=== PATIENT | female | born 1985 | race American Indian/Alaskan Native ===

== ENCOUNTER 2018-04-01 15:32 | Inpatient (IN) | payer BC, MEDICAID ==
[2018-04-01 16:31] LABS: Bacteria,Urine 2+ /HPF (Negative); Bilirubin,Urine NEG (Negative); Blood,Urine NEG (Negative); Color,Urine Amber (Yellow); Hyaline Casts,Urine 2 /LPF; Mucus,Urine 3+ /HPF
[2018-04-01 16:40] LABS: Hematocrit 31.8 % (30.3-42.9); Hemoglobin 10.1 gm/dl (10.1-14.3); Mean Corpuscular HGB Conc 32 % (30-34); Platelet Count 245 K/mm3 (140-440); Red Blood Count 4.95 M/mm3 (3.65-5.03); Red Cell Distribution Width 15.3 % (13.2-15.2)
[2018-04-01 16:46] LABS: Mean Corpuscular Volume 64 fl (79-97)
[2018-04-01 16:56] LABS: Alanine Aminotransferase 7 units/L (7-56); Uric Acid 5.2 mg/dL (3.5-7.6)
[2018-04-01] MEDS ORDERED: LACTATED RINGERS 500 ML IV ONE (17:01)
[2018-04-01] MEDS ORDERED: BRETHINE IVP PRN (17:32)
[2018-04-01] MEDS ORDERED: BRETHINE SUB-Q PRN (17:32)
[2018-04-01] MEDS ORDERED: MINERAL OIL PO PRN (17:32)
[2018-04-01] MEDS ORDERED: XYLOCAINE 2% INFILTRATI ONE (17:32)
--- NOTE | 2018-04-01 17:58 | History and Physical Report ---
History of Present Illness Date of examination: 04/01/18 Date of admission: 04/01/18 Chief complaint: SIUP at 36 weeks with HTN. History of present illness: Patient is a 33 year old , LMP 07/23/17, EDC 04/29/18 at 36 weeks gestation who was sent from the office for elevated BP. She complained of having headaches and spots of lights in her eyes yesterday. She denies any RUQ pain. She reports good movement. She has chronic HTN and has been on labetolol 200 mg BID. Her BP was 143/93 in the office. In triage, BP has been in the 120's/70's. tracing is CAT1. Past History Past Medical History: hypertension, other (anemia, obesity.) Family/Genetic History: none Social history: smoking - Obstetrical History Expected Date of Delivery: 04/29/18 Actual Gestation: 36 Week(s) 0 Day(s) : 5 Para: 2 Induced : 2 Number of Living Children: 2 #1 Gender: Female year: 2,[birth year] Birthweight: 2.268 kg Method of Delivery: (For distress.) Gestational age at delivery: 37 Complications: other (pre-eclampsia) #2 Infant Gender: Female year: 2,[birth year] Birthweight: 2.693 kg Method of Delivery: Gestational age at delivery: 37 Complications: other (pre-eclampsia) Medications and Allergies Allergies Allergy/AdvReac Type Severity Reaction Status Date / Time No Known Allergies Allergy Verified 02/11/18 16:15 Active Meds: Active Medications Acetaminophen (Tylenol) 650 mg PO Q6H PRN PRN Reason: Pain, Mild (1-3) Ephedrine Sulfate (Ephedrine Sulfate) 10 mg IV Q2M PRN PRN Reason: Hypotension Lactated Ringer's (Lactated Ringers) 1,000 mls @ 125 mls/hr IV DIRECT JACOB Oxytocin/Sodium Chloride (Pitocin/Ns 20 Unit/1000ml Drip) 20 units in 1,000 mls @ 125 mls/hr IV DIRECT JACOB Oxytocin/Sodium Chloride (Pitocin/Ns 30 Unit/500ml) 30 units in 500 mls @ 1 mls/hr IV TITR JACOB; Protocol Mineral Oil (Mineral Oil) 30 ml PO QHS PRN PRN Reason: Constipation Ondansetron HCl (Zofran) 4 mg IV Q8H PRN PRN Reason: Nausea And Vomiting Terbutaline Sulfate (Brethine) 0.25 mg SUB-Q ONCE PRN PRN Reason: Hyperstimulation/Hypertonicity Terbutaline Sulfate (Brethine) 0.25 mg IVP ONCE PRN PRN Reason: Hyperstimulation/Hypertonicity - Vital Signs Vital signs: Vital Signs Pulse BP 77 128/77 04/01/18 15:59 04/01/18 15:59 Temp Pulse Resp BP Pulse Ox 98.7 F 76 20 128/72 04/01/18 16:04 04/01/18 17:44 04/01/18 16:04 04/01/18 17:44 - Physical Exam Cardiovascular: Normal S1, Normal S2 Lungs: Positive: Clear to auscultation Vulva: both: normal Deep Tendon Reflex Grade: Normal +2 - Obstetrical FHR: category 1 Uterine Contraction Monitor Mode: External Cervical Dilatation: 0 Cervical Effacement Percentage: 0 station: -3 Uterine Contraction Pattern: Absent Results Result Diagrams: 04/01/18 16:12 04/01/18 16:12 Abnormal lab results 04/01/18 04/01/18 04/01/18 Range/Units 15:50 16:12 16:12 MCV 64 L (79-97) fl MCH 20 L (28-32) pg RDW 15.3 H (13.2-15.2) % Creatinine 0.6 L (0.7-1.2) mg/dL Lactate Dehydrogenase 557 H (91-180) units/L Urine WBC (Auto) 11.0 H (0.0-6.0) /HPF U Epithel Cells (Auto) 25.0 H (0-13.0) /HPF All other labs normal. Assessment and Plan - Patient Problems (1) 36 weeks gestation of Current Visit: Yes Status: Acute (2) Chronic hypertension affecting Current Visit: Yes Status: Acute Plan to address problem: Admit to labor floor. Toxemia labs. Monitor BP. Labetolol for BP control. monitoring. Sonogram for BPP, NIKITA. If BP becomes unstable, patient becomes symptomatic, or labs abnormal, will deliver via repeat C/section. (3) Previous section Current Visit: Yes Status: Acute (4) Obesity Current Visit: Yes Status: Acute Qualifiers: Obesity type: due to excess calories (5) Rh negative state in antepartum period Current Visit: Yes Status: Acute Plan to address problem: For rhogam after delivery.
[2018-04-01] MEDS ORDERED: PITOCin/NS 20 UNIT/1000ML DRIP 20 UNITS/1,000 ML BAG IV SCH (18:00)
[2018-04-01] MEDS ORDERED: PITOCin/NS 30 UNIT/500ML 30 UNITS/500 ML BAG IV SCH (18:00)
[2018-04-01] MEDS: TYLENOL PO PRN (18:10)
[2018-04-01] MEDS: NORMODYNE PO SCH (19:00)
--- NOTE | 2018-04-01 21:39 | Ultrasound Report ---
FINAL REPORT PROCEDURE: US OB BPP WO NON-STRESS TECHNIQUE: Real-time transabdominal sonography of the uterus, placenta, amniotic fluid, adnexa, and fetus was performed with image documentation. Measurements were obtained to determine age/size. M-mode Doppler was used to document heartbeat. CPT 48936 HISTORY: HTN COMPARISON: No prior studies are available for comparison. FINDINGS: The biophysical profile: tone: 2. breathin. movements: 2. Amniotic fluid: 2. Total score: 8/8. heart rate 143 beats per minute. IMPRESSION: Normal biophysical profile.
--- NOTE | 2018-04-01 21:42 | Ultrasound Report ---
FINAL REPORT PROCEDURE: US OB FOLLOW UP TECHNIQUE: Real-time limited sonographic examination was performed for evaluation of size, pos ition, heartbeat, fluid volume for each fetus with image documentation (1 or more fetuses). CPT 7681 5 HISTORY: HTN COMPARISON: No prior studies are available for comparison. FINDINGS: FETUS IUP: Single living intrauterine . Position: Cephalic. Placental position: Anterior, without previa . Amniotic fluid volume: 14.6 centimeters Heart rate and rhythm: 138 BPM, Regular . anatomic survey: Not performed. MEASUREMENTS BPD: 8.4 centimeters correspond at 33 weeks and 6 days. HC: 30.6 centimeters correspond at 34 weeks and 1 day. AC: 29.1 centimeters correspond at 33 weeks and 1 day. FL: 6 centimeters correspond at 31 weeks and 3 days. Mean Gestational Age (composite criteria): 33 weeks and 1 day. Ratio biometry: Normal . Estimated Weight: 2042 grams. Interval growth: Appropriate . Estimated Due Date (earliest scan): 05/19/2018. IMPRESSION: 1. Single living intrauterine gestation at approximately 33 weeks and 1 day. 2. EDC by US 05/19/2018.
--- NOTE | 2018-04-01 21:45 | Ultrasound Report ---
FINAL REPORT PROCEDURE: US OB VELOCIMETRY UMBILCAL ART TECHNIQUE: Real-time limited sonographic examination was performed for evaluation of size, pos ition, heartbeat, fluid volume for each fetus with image documentation (1 or more fetuses). CPT 7681 5 HISTORY: HTN COMPARISON: No prior studies are available for comparison. FINDINGS: Heart rate is 130 beats per minute. The umbilical artery S/D ratio is 2.76. Waveforms are normal. Resistive index is 0.63. IMPRESSION: The umbilical artery S/D ratio is 2.76.
[2018-04-02] MEDS: TYLENOL PO PRN ×2 (07:15→20:32)
[2018-04-02 10:01] LABS: Hematocrit 29.4 % (30.3-42.9); Hemoglobin 9.4 gm/dl (10.1-14.3); Mean Corpuscular HGB Conc 32 % (30-34); Platelet Count 252 K/mm3 (140-440); Red Cell Distribution Width 15.4 % (13.2-15.2)
[2018-04-02 10:04] LABS: Mean Corpuscular Volume 64 fl (79-97)
[2018-04-02 10:19] LABS: Alanine Aminotransferase 11 units/L (7-56)
[2018-04-02] MEDS: NORMODYNE PO SCH ×2 (10:29→22:15)
[2018-04-02] MEDS: ZOFRAN IV PRN (11:20)
[2018-04-02] MEDS: LACTATED RINGERS 1,000 ML IV SCH (17:49)
--- NOTE | 2018-04-02 18:39 | Progress Note ---
Assessment and Plan - Patient Problems (1) 36 weeks gestation of Current Visit: Yes Status: Acute (2) Chronic hypertension affecting Current Visit: Yes Status: Acute Plan to address problem: Continue 24hr urine [facility] consult for timing of delivery Continue Labetolol (3) Previous section Current Visit: Yes Status: Acute Subjective - Subjective Principal diagnosis: chronic hypertension Interval history: Good movement, no loss of fluid, no vaginal bleeding Patient reports: other (persistent headache) Objective - Vital Signs Vital Signs: Vital Signs - 12hr 04/02/18 04/02/18 04/02/18 07:08 07:30 08:09 Temperature Pulse Rate 64 72 71 Respiratory Rate Blood Pressure 141/80 138/89 143/85 Blood Pressure [Left] O2 Sat by Pulse Oximetry 04/02/18 04/02/18 04/02/18 08:29 09:08 09:13 Temperature 98.6 F Pulse Rate 71 76 74 Respiratory 18 Rate Blood Pressure 137/79 117/58 Blood Pressure 137/79 [Left] O2 Sat by Pulse 98 Oximetry 04/02/18 04/02/18 04/02/18 10:09 10:29 10:30 Temperature Pulse Rate 69 69 69 Respiratory Rate Blood Pressure 155/79 135/78 135/78 Blood Pressure [Left] O2 Sat by Pulse Oximetry 04/02/18 04/02/18 04/02/18 11:10 12:09 12:15 Temperature 97.9 F Pulse Rate 65 71 71 Respiratory 18 Rate Blood Pressure 134/76 133/73 Blood Pressure 133/73 [Left] O2 Sat by Pulse Oximetry 04/02/18 04/02/18 04/02/18 13:09 14:20 15:09 Temperature Pulse Rate 73 67 70 Respiratory Rate Blood Pressure 132/71 135/79 133/62 Blood Pressure [Left] O2 Sat by Pulse Oximetry 04/02/18 04/02/18 04/02/18 16:10 16:12 17:09 Temperature 98.0 F Pulse Rate 73 73 77 Respiratory 18 Rate Blood Pressure 135/69 125/81 Blood Pressure 135/69 [Left] O2 Sat by Pulse Oximetry 04/02/18 18:09 Temperature Pulse Rate 71 Respiratory Rate Blood Pressure 125/80 Blood Pressure [Left] O2 Sat by Pulse Oximetry - Labs Labs: Abnormal Labs 04/01/18 04/01/18 04/01/18 15:50 16:12 16:12 Hgb Hct MCV 64 L MCH 20 L RDW 15.3 H Creatinine 0.6 L Lactate Dehydrogenase 557 H Urine WBC (Auto) 11.0 H U Epithel Cells (Auto) 25.0 H 04/02/18 04/02/18 09:44 09:44 Hgb 9.4 L Hct 29.4 L MCV 64 L MCH 20 L RDW 15.4 H Creatinine 0.5 L Lactate Dehydrogenase Urine WBC (Auto) U Epithel Cells (Auto) Laboratory Results - last 24 hr 04/02/18 04/02/18 09:44 09:44 WBC 6.3 RBC 4.60 Hgb 9.4 L Hct 29.4 L MCV 64 L MCH 20 L MCHC 32 RDW 15.4 H Plt Count 252 Creatinine 0.5 L Estimated GFR > 60 Uric Acid 5.0 AST 22 ALT 11 Lactate Dehydrogenase 134
--- NOTE | 2018-04-02 21:47 | Event Note ---
Spoke with Dr. Mae for 36 week patient concerning for CHTN superimposed preeclampsia undergoing 24hr urine. Due to neurologic symptoms recommendation to deliver after course of steroids made CHTN S/I preeclampsia w severe features. Plan 1. Dexamethasone 6mg IV Q12hrs x 4 doses 2. Plan to proceed to repeat c/s after steriods.
[2018-04-02] MEDS ORDERED: DECADRON IV SCH (22:00)
[2018-04-02] MEDS ORDERED: DECADRON IM SCH ×2 (22:04→22:07)
[2018-04-02] MEDS: DECADRON IM SCH (23:32)
[2018-04-03] MEDS: LACTATED RINGERS 1,000 ML IV SCH (01:11)
--- NOTE | 2018-04-03 09:13 | Progress Note ---
Assessment and Plan - Patient Problems (1) 36 weeks gestation of Current Visit: Yes Status: Acute (2) Chronic hypertension affecting Current Visit: Yes Status: Acute Plan to address problem: Toxemia labs were normal. Monitor BP. Continue labetolol for BP control. Continuous monitoring. Will deliver via repeat C/section after steroid completed tonight. If BP becomes unstable, patient becomes symptomatic, or labs abnormal, will deliver sooner. (3) Previous section Current Visit: Yes Status: Acute Plan to address problem: For repeat C/section after steroid completed. (4) Obesity Current Visit: Yes Status: Acute Qualifiers: Obesity type: due to excess calories (5) Rh negative state in antepartum period Current Visit: Yes Status: Acute Plan to address problem: For rhogam after delivery. Subjective - Subjective Date of service: 04/03/18 Principal diagnosis: SIuP at 36 weeks with chronic hypertension Interval history: Patient is a 33 year old , LMP 07/23/17, EDC 04/29/18 at 36 weeks and 2 days gestation who was admitted for elevated BP. She complained of having headaches and spots of lights in her eyes the day before. She denies any RUQ pain. She reports good movement. She has chronic HTN and has been co- managed with [facility]. She is on labetolol 200 mg BID. Her BP was 143/93 in the office. Since her admission, her BP has been stable. BPP was 8/8, normal NIKITA. [facility] consult was done and recommended delivery after steroid for FLM is completed. Dexamethasone 2 doses have been given. She is scheduled for the next 2 doses today (to be completed at 11 PM). Currently, she denies any headache, visual changes or RUQ pain. She reports good movement. tracing is CAT1. 24-hr protein was 252.5. Patient reports: other (persistent headache) Objective - Vital Signs Vital Signs: Vital Signs - 12hr 04/02/18 04/02/18 04/02/18 21:09 22:14 22:15 Temperature Pulse Rate 71 71 71 Respiratory Rate Blood Pressure 144/90 148/81 148/81 Blood Pressure [Left] 04/02/18 04/02/18 04/03/18 23:10 23:55 00:08 Temperature 98.4 F Pulse Rate 71 71 68 Respiratory 20 Rate Blood Pressure 132/80 123/77 115/66 Blood Pressure 123/77 [Left] 04/03/18 04/03/18 04/03/18 01:11 02:09 03:51 Temperature 98.3 F Pulse Rate 75 69 73 Respiratory 18 Rate Blood Pressure 130/76 131/61 Blood Pressure 137/70 [Left] 04/03/18 04/03/18 04/03/18 03:53 04:08 05:09 Temperature Pulse Rate 73 71 69 Respiratory Rate Blood Pressure 137/70 130/66 122/58 Blood Pressure [Left] 04/03/18 04/03/18 04/03/18 07:09 07:35 08:00 Temperature 97.9 F Pulse Rate 75 70 Respiratory 14 Rate Blood Pressure 126/69 138/75 Blood Pressure [Left] 04/03/18 08:09 Temperature Pulse Rate 75 Respiratory Rate Blood Pressure 128/72 Blood Pressure [Left] - Exam Cardiovascular: Normal S1, Normal S2 Lungs: Clear to auscultation Vulva: both: normal FHR: category 1 Uterine Contraction Monitor Mode: External Cervical Dilatation: 0 Cervical Effacement Percentage: 0 station: -3 Uterine Contraction Pattern: Absent Deep Tendon Reflex Grade: Normal +2 - Labs Labs: Abnormal Labs 04/01/18 04/01/18 04/01/18 15:50 16:12 16:12 Hgb Hct MCV 64 L MCH 20 L RDW 15.3 H Creatinine 0.6 L Lactate Dehydrogenase 557 H Urine WBC (Auto) 11.0 H U Epithel Cells (Auto) 25.0 H Ur Total Protein 24 Hr 04/02/18 04/02/18 04/02/18 09:44 09:44 23:30 Hgb 9.4 L Hct 29.4 L MCV 64 L MCH 20 L RDW 15.4 H Creatinine 0.5 L Lactate Dehydrogenase Urine WBC (Auto) U Epithel Cells (Auto) Ur Total Protein 24 Hr 256.50 H Laboratory Results - last 24 hr 04/02/18 04/02/18 04/02/18 09:44 09:44 23:30 WBC 6.3 RBC 4.60 Hgb 9.4 L Hct 29.4 L MCV 64 L MCH 20 L MCHC 32 RDW 15.4 H Plt Count 252 Creatinine 0.5 L Estimated GFR > 60 Uric Acid 5.0 AST 22 ALT 11 Lactate Dehydrogenase 134 Urine Total Volume 2850 Ur Total Protein 24 Hr 256.50 H Urine Total Protein 9 - Results US- obstetric: report reviewed
[2018-04-03] MEDS: NORMODYNE PO SCH ×2 (10:20→22:07)
[2018-04-03] MEDS: DECADRON IM SCH ×2 (11:00→23:04)
[2018-04-03] MEDS: ZOLOFT PO SCH (12:23)
[2018-04-03] MEDS: TYLENOL PO PRN (21:18)
[2018-04-04] MEDS: ZOFRAN IV PRN (08:33)
[2018-04-04] MEDS: ZOLOFT PO SCH (10:17)
[2018-04-04] MEDS: NORMODYNE PO SCH (10:17)
[2018-04-04] MEDS: LACTATED RINGERS 1,000 ML IV SCH ×2 (11:28→16:29)
[2018-04-04] MEDS: PEPCID IV SCH (11:28)
--- NOTE | 2018-04-04 12:13 | Progress Note ---
Assessment and Plan - Patient Problems (1) 36 weeks gestation of Current Visit: Yes Status: Acute Plan to address problem: Plan repeat csection once steroid course complete. NPO (2) Chronic hypertension affecting Current Visit: Yes Status: Acute Plan to address problem: Continue Labetolol (3) Previous section Current Visit: Yes Status: Acute Subjective - Subjective Principal diagnosis: SIuP at 36 weeks with chronic hypertension Interval history: Good movement, no loss of fluid, no vaginal bleeding Patient reports: other Objective - Vital Signs Vital Signs: Vital Signs - 12hr 04/04/18 04/04/18 04/04/18 04:00 04:07 05:07 Temperature 98.7 F Pulse Rate 75 77 Respiratory Rate Blood Pressure 141/75 135/74 04/04/18 04/04/18 04/04/18 06:07 07:07 08:12 Temperature 97.5 F L Pulse Rate 78 80 73 Respiratory 20 Rate Blood Pressure 136/73 142/77 123/60 04/04/18 10:17 Temperature Pulse Rate 78 Respiratory Rate Blood Pressure 132/70 - Labs Labs: Abnormal Labs 04/01/18 04/01/18 04/01/18 15:50 16:12 16:12 Hgb Hct MCV 64 L MCH 20 L RDW 15.3 H Creatinine 0.6 L Lactate Dehydrogenase 557 H Urine WBC (Auto) 11.0 H U Epithel Cells (Auto) 25.0 H Ur Total Protein 24 Hr 04/02/18 04/02/18 04/02/18 09:44 09:44 23:30 Hgb 9.4 L Hct 29.4 L MCV 64 L MCH 20 L RDW 15.4 H Creatinine 0.5 L Lactate Dehydrogenase Urine WBC (Auto) U Epithel Cells (Auto) Ur Total Protein 24 Hr 256.50 H
[2018-04-04] MEDS: DECADRON IM SCH (12:28)
[2018-04-04] MEDS ORDERED: REGLAN IV ONE (15:10)
[2018-04-04] MEDS ORDERED: BICITRA PO ONE (15:10)
--- NOTE | 2018-04-04 15:26 | Anesthesia Consultation ---
Anesthesia Consult and Med Hx Date of service: 04/04/18 - Airway Anesthetic Teeth Evaluation: Good ROM Head & Neck: Adequate Mental/Hyoid Distance: Adequate Mallampati Class: Class II Intubation Access Assessment: Probably Good - Pulmonary Exam CTA: Yes - Cardiac Exam Cardiac Exam: RRR - Pre-Operative Health Status ASA Pre-Surgery Classification: ASA2 Proposed Anesthetic Plan: Spinal - Pulmonary Hx Asthma: Yes (last attack last year) - Cardiovascular System Hx Hypertension: Yes - Central Nervous System Hx Seizures: No Hx Psychiatric Problems: Yes (aniexty depression) - Endocrine Hx Renal Disease: No Hx Hypothyroidism: No Hx Hyperthyroidism: No - Hematic Hx Anemia: Yes Hx Sickle Cell Disease: No - Other Systems Hx Alcohol Use: No Hx Obesity: Yes
[2018-04-04] MEDS ORDERED: PHENERGAN PR PRN (15:27)
[2018-04-04] MEDS ORDERED: DILAUDID IV PRN ×2 (15:27→19:01)
[2018-04-04] MEDS ORDERED: PHENERGAN PO PRN (15:27)
[2018-04-04] MEDS ORDERED: ZOFRAN IV PRN (15:27)
[2018-04-04] MEDS ORDERED: NARCAN 0.4 MG/1 ML IV PRN (15:27)
--- NOTE | 2018-04-04 15:27 | Anesthesia Day of Surgery ---
Anesthesia Day of Surgery - Day of Surgery Patient Examined: Yes Patient H&P Reviewed: Yes Patient is NPO: Yes Beta Blockers: No Cardiac Clearance: No Pulmonary Clearance: No Boby's Test: N/A
[2018-04-04] MEDS ORDERED: LACTATED RINGERS 1,000 ML IV SCH ×2 (16:00→20:00)
[2018-04-04] MEDS ORDERED: fentaNYL-BUPIV 2 MCG/ML-0.125% 200 MCG/100 ML BAG EPIDURAL SCH (16:00)
[2018-04-04] MEDS ORDERED: ANCEF/STERILE WATER 2 GM/20 ML 2 GM/20 ML SYRINGE IV NR (16:00)
[2018-04-04] MEDS ORDERED: SODIUM CHLORIDE FLUSH SYRINGE 10 ML IV NR (16:00)
[2018-04-04] MEDS ORDERED: PITOCin/NS 20 UNIT/1000ML DRIP 20 UNITS/1,000 ML BAG IV SCH ×2 (16:00→20:00)
[2018-04-04] MEDS ORDERED: ANCEF/STERILE WATER 2 GM/20 ML IV ONE (16:55)
[2018-04-04] MEDS ORDERED: APRESOLINE IV ONE (19:12)
[2018-04-04] MEDS ORDERED: MAGNESIUM SULFATE 4GM/100ML 4 GM/100 ML BAG IV ONE (19:12)
[2018-04-04] MEDS ORDERED: APRESOLINE IV PRN (19:12)
[2018-04-04] MEDS ORDERED: TUCKS PAD TP PRN (19:16)
--- NOTE | 2018-04-04 19:29 | Operative Report ---
Operative Report Operative Report: PREOP Diagnosis 1. 36 3/7 weeks gestation 2. Previous section 3. Chronic hypertension superimposed preeclampsia Postop Diagnosis 1. 39 3/7 weeks gestation 2. Previous section 3. Chronic hypertension superimposed preeclampsia Procedure: Repeat low-transverse section Findings 1. Viable male infant in the vertex presentation, weighing 4lb 8oz, 2043g APGARS 5 at 1 min, 5 at 5 min and 9 at 10 min 2. Dense uterine to abdominal wall adhesions 3. Omental adhesions Surgeon 1. Jennifer Posada MD Anesthesia: 1. Epidural I/O: EBL: 700ml Specimens removed: 1. Placenta to pathology Complications: none Disposition: Patient taken to recovery room in stable condition INDICATIONS: The patient is a 33yo at 36 3/7weeks that was managed for chronic hypertension with severe features. After speaking with Sammie Cook, P[facility] - Maternal medicine the decision was to proceed to delivery based on history with CHTN on Labetolol with severe features.. The patient was consented and the risks including but not limited to bleeding, infections, injury to surrounding organs, potential injury to mother/ were discussed. All questions were answered and informed consent signed. PROCEDURE: The patient was taken to the OR in stable condition. Adequate anesthesia was ac hieved with epidural anesthesia. A da silva catheter was placed. She wore SCDs for DVT prophylaxis. And received Ancef for infection prophylaxis. The patient was prepped and draped in the usual fashion and an additional time out was done. A Pfannestiel incision was made in the skin. The fascia was incised and the incision extended laterally. The superior and inferior aspect of the rectus muscle was dissected off of the fascia. Entry into the peritoneum was achieved. The incision was extended caudal and cranially. A dense uterine body to abdominal wall incision was noted fixing the uterus to the abdominal wall. A low transverse incision was made and extended laterally. membranes were ruptured. The head was brought to the hysterotomy and mouth bulb suctioned. The body was delivered. The cord was clamped x 2, cut and infant handed off to awaiting allied health teacher staff. The placenta was delivered intact and 30 units of IV Pitocin was added to LR fluids. The uterus was exteriorized and cleaned of all clots. The uterus was repaired with 0-Vicryl in a running, locked stitch and an imbricating layer of the same suture was used. Of note the omental adhesion was cauterized and ligated. Interceed was placed between the uterine and rectus muscle planes. The muscle was reapproximated with 0-Vicryl and fascia was closed with PDS II The subcutaneous layer was reapproximated with 2-0 Vicryl and skin closed with 4-0 Vicryl. The patient tolerated the procedure well. All counts were correct x 3. Urine was noted to be clear at close of case. I was present and scrubbed for the entire procedure. The patient was taken to the recovery room in stable condition.
[2018-04-04] MEDS: PERCOCET 5/325 PO PRN (20:53)
[2018-04-04] MEDS: MAGNESIUM SULFATE 40GM/1000ML 40 GM/1,000 ML BAG IV SCH (21:21)
[2018-04-05] MEDS ORDERED: DILAUDID IV PRN (00:04)
[2018-04-05] MEDS: PERCOCET 5/325 PO PRN ×3 (05:42→20:20)
[2018-04-05 05:47] LABS: Hematocrit 24.1 % (30.3-42.9); Hemoglobin 7.7 gm/dl (10.1-14.3)
[2018-04-05] MEDS: NORMODYNE PO SCH ×2 (10:28→22:19)
[2018-04-05] MEDS: PEPCID IV SCH (10:28)
[2018-04-05] MEDS: ZOLOFT PO SCH (10:28)
[2018-04-05] MEDS: FEOSOL PO SCH (10:28)
--- NOTE | 2018-04-05 16:12 | Progress Note ---
<BALWINDER FELICIANO - Last Filed: 04/05/18 16:09> Assessment and Plan A: /postop day 1 S/P repeat LTCS. Chronic HTN; superimposed preeclampsia. P: Anticipate transfer to /B later tonight if OK with MD. Subjective - Subjective Date of service: 04/05/18 Principal diagnosis: / day 1 S/P repeat LTCS Interval history: Doing well. /postop day 1 S/P repeat LTCS; chronic HTN with s uperimposed preeclampsia. Paitent denies headache, chest pain, cough, shortness of breath, nausea. Patient reports: pain well controlled, no flatus, no nauseated [place]: doing well, in NICU Objective - Vital Signs Latest vital signs: Vital Signs Temp Pulse Resp BP BP Pulse Ox 04/05/18 15:28 66 136/73 04/05/18 14:28 72 130/62 04/05/18 13:28 80 125/59 04/05/18 13:23 98.7 F 67 18 145/77 04/05/18 12:28 69 116/61 04/05/18 12:11 80 116/63 04/05/18 12:10 97.5 F L 80 18 116/63 04/05/18 11:28 68 123/64 04/05/18 10:28 67 145/77 04/05/18 06:56 75 111/55 04/05/18 06:26 66 120/62 04/05/18 05:56 62 123/63 04/05/18 04:56 69 120/59 04/05/18 04:26 72 119/56 04/05/18 03:56 72 98/56 04/05/18 03:26 69 116/55 04/05/18 02:56 71 114/61 04/05/18 02:27 80 124/65 04/05/18 01:56 75 106/51 04/05/18 01:26 70 106/51 04/05/18 00:26 76 115/57 04/05/18 00:15 97.9 F 04/04/18 23:56 72 126/62 04/04/18 23:26 79 127/58 04/04/18 22:56 77 117/57 04/04/18 22:26 73 112/56 04/04/18 21:56 77 121/75 04/04/18 21:25 81 124/71 04/04/18 20:00 158/86 04/04/18 19:45 63 21 180/95 99 04/04/18 19:30 63 21 185/96 04/04/18 19:26 14 04/04/18 19:20 65 194/103 04/04/18 19:15 65 22 194/103 04/04/18 19:00 62 22 186/87 04/04/18 18:55 63 15 160/94 04/04/18 18:52 65 12 158/82 04/04/18 18:50 97.7 F 62 12 174/101 100 Intake and Output 04/05/18 04/05/18 04/05/18 07:59 15:59 23:59 Intake Total 30 Output Total 400 1800 Balance -400 -1770 Intake: Oral 30 Output: Urine 400 1800 Void 400 1800 Other: Total, Intake Amount 30 Total, Output Amount 400 900 - Exam Abdomen: Present: normal appearance, soft, normal bowel sounds. Absent: distention, tenderness, guarding, rigidity Uterus: Present: normal, firm, fundal height below umbilicus. Absent: bogginess, tenderness Extremities: Present: normal, edema (bilateral pedal edema; mild hand edema bilaterally). Absent: tenderness Incision: Present: normal, dry, intact, dressed - Labs Labs: Abnormal lab results 04/05/18 04/05/18 04/05/18 Range/Units 05:24 05:24 12:23 Hgb 7.7 L (10.1-14.3) gm/dl Hct 24.1 L (30.3-42.9) % Magnesium 4.20 H 4.60 H (1.7-2.3) mg/dL <FREDDIE BROWNING - Last Filed: 04/08/18 08:55> Assessment and Plan - Patient Problems (1) 36 weeks gestation of Current Visit: Yes Status: Acute (2) Chronic hypertension affecting Current Visit: Yes Status: Acute (3) Previous section Current Visit: Yes Status: Acute (4) Anemia due to acute blood loss Current Visit: Yes Status: Acute Plan to address problem: Start iron supplementation. Objective - Vital Signs Latest vital signs: Vital Signs Temp Pulse Resp BP BP BP Pulse Ox 04/08/18 08:10 97.8 F 71 20 148/65 04/08/18 01:33 98.4 F 77 18 135/62 04/07/18 21:49 77 132/69 132/69 04/07/18 16:44 98.3 F 75 20 127/70 98 Intake and Output 04/07/18 04/08/18 04/08/18 23:59 07:59 15:59 Intake Total 240 360 320 Balance 240 360 320 Intake: Oral 240 320 Intake, Free Water 360 Other: Total, Intake Amount 240 320 # Voids Void 1 2 1 - Labs Labs: Abnormal lab results 04/08/18 Range/Units 04:11 Hgb 6.9 L (10.1-14.3) gm/dl Hct 21.6 L (30.3-42.9) %
[2018-04-05] MEDS: MAGNESIUM SULFATE 40GM/1000ML 40 GM/1,000 ML BAG IV SCH (17:02)
[2018-04-05] MEDS: LACTATED RINGERS 1,000 ML IV SCH (18:43)
[2018-04-06] MEDS: MYLICON PO PRN ×2 (03:39→11:22)
[2018-04-06] MEDS: PERCOCET 5/325 PO PRN ×5 (03:40→22:17)
[2018-04-06] MEDS: MILK OF MAGNESIA PO PRN (08:36)
--- NOTE | 2018-04-06 10:25 | Progress Note ---
Assessment and Plan A: /postop day 2 S/P repeat low transverse section. Anemia. Chronic hypertension with superimposed preeclampsia. Heart murmur. P: Repeat hemoglobin and hematocrit this morning. Ambulate in cardenas; drink warm liquids. Will advance diet to regular at lunch today if patient is able to pass gas this morning. Hospitalist consult re: heart murmur (patient states she was never told she had this previously). Subjective - Subjective Date of service: 04/06/18 Principal diagnosis: / day 2 S/P repeat LTCS Interval history: /postop day 2 S/P repeat LTCS. Doing well. Has anemia and iron supplementation has been ordered. Patient is voiding without difficulty. Ambulating well. No flatus yet. Tolerating liquid diet with no nausea or vomiting. Patient denies headache, dizziness, cough, shortness of breath, chest pain, abdominal pain, leg pain, or heavy vaginal bleeding. Will drink warm liquids this morning and ambulate to try to pass gas. Plan advancing diet to regular as soon as she is able to pass gas. Repeat H&H has been ordered for this morning. Patient's BP was low overnight; Labetalol was dose was decreased to 200 mg po BID. Patient reports: appetite normal, voiding normally, pain well controlled, ambulating normally, no dizzy ambulation, no flatus, no bowel movement, no nauseated : doing well, in NICU Objective - Vital Signs Latest vital signs: Vital Signs Temp Pulse Resp BP BP BP 04/06/18 08:31 18 04/06/18 08:00 98.6 F 71 18 138/73 04/06/18 04:40 18 04/06/18 03:40 20 04/06/18 03:00 110/70 04/06/18 00:40 100/50 04/05/18 23:30 98.2 F 82 20 90/35 04/05/18 22:19 88 140/77 04/05/18 21:20 20 04/05/18 20:40 98.2 F 68 20 140/85 04/05/18 20:06 97.6 F 74 16 141/77 04/05/18 20:04 74 141/77 04/05/18 18:28 74 125/69 04/05/18 17:28 70 147/82 04/05/18 16:28 68 152/83 04/05/18 15:28 66 136/73 04/05/18 14:28 72 130/62 04/05/18 13:28 80 125/59 04/05/18 13:23 98.7 F 67 18 145/77 04/05/18 12:28 69 116/61 04/05/18 12:11 80 116/63 04/05/18 12:10 97.5 F L 80 18 116/63 04/05/18 11:28 68 123/64 04/05/18 10:28 67 145/77 Intake and Output 04/05/18 04/06/18 04/06/18 23:59 07:59 15:59 Intake Total 973.083 500 Output Total 1500 Balance -526.917 500 Intake: IV 492.083 MAGNESIUM SULFATE 40GM/ 492.083 1000ML 40 gm In 1,000 ml @ 1 GM/HR 25 mls/hr IV DIRECT JACOB Rx#:[id number] Oral 480 200 Intake, Free Water 300 Blood Product 0 Rhogam Unit [id number] 0 Other 1 Rhogam Unit [id number] 1 Output: Urine 1500 Indwelling Catheter 700 Void 800 Other: Total, Intake Amount 240 200 Total, Output Amount 700 # Voids Void 1 - Exam Cardiovascular: Present: Regular rate, Normal S1, Normal S2 (murmur heard) Lungs: Present: Clear to auscultation Abdomen: Present: normal appearance, soft, normal bowel sounds. Absent: distention, tenderness, guarding, rigidity Uterus: Present: normal, firm, fundal height below umbilicus. Absent: bogginess, tenderness Extremities: Present: normal, edema (mild pedal edema bilaterally). Absent: tenderness Incision: Present: normal, dry, intact, dressed - Labs Labs: Abnormal lab results 04/05/18 04/05/18 04/06/18 Range/Units 12:23 18:52 01:11 Magnesium 4.60 H 4.70 H 3.20 H (1.7-2.3) mg/dL
[2018-04-06] MEDS: FEOSOL PO SCH (11:10)
[2018-04-06] MEDS: PEPCID PO SCH ×2 (11:10→22:07)
[2018-04-06] MEDS: NORMODYNE PO SCH ×2 (11:19→22:18)
[2018-04-06] MEDS: ZOLOFT PO SCH (11:22)
[2018-04-06 11:39] LABS: Hematocrit 23.9 % (30.3-42.9); Hemoglobin 7.6 gm/dl (10.1-14.3)
--- NOTE | 2018-04-06 12:50 | Consultation ---
History of Present Illness - Reason for Consult Consult date: 04/06/18 heart murmur - History of Present Illness This is a 33 y/o female s/p low-transverse section on 04/04/18 with live with h/o HTN and pre-eclampsia. Medicine service consulted for new onset murmur. Past History Past Medical History: hypertension, other (anemia, obesity.) Family/Genetic History: none Social history: smoking Family History: HTN Medications and Allergies Allergies Allergy/AdvReac Type Severity Reaction Status Date / Time No Known Allergies Allergy Verified 02/11/18 16:15 Home Medications Medication Instructions Recorded Confirmed Last Taken Type Ferrous Sulfate [Feosol 325 MG tab] 325 mg PO BID 30 Days #60 tablet 04/04/18 Unknown Rx oxyCODONE /ACETAMINOPHEN [Percocet 1 tab PO Q4HR PRN 14 Days #30 tab 04/04/18 Unknown Rx 5/325] Amlodipine Besylate [Norvasc] 10 mg PO QDAY #30 tablet 04/09/18 Unknown Rx Ferrous Sulfate [Iron] 325 mg PO BID #60 tablet 04/09/18 Unknown Rx Ibuprofen [Motrin] 800 mg PO Q8HR PRN #30 tablet 04/09/18 Unknown Rx oxyCODONE /ACETAMINOPHEN [Percocet 1 tab PO Q4HR #14 tab 04/09/18 Unknown Rx 5/325] Active Meds: Active Medications Acetaminophen (Tylenol) 650 mg PO Q6H PRN PRN Reason: Pain, Mild (1-3) Last Admin: 04/03/18 21:18 Dose: 650 mg Documented by: Diphtheria/Tetanus/Acell Pertussis (Boostrix) 0.5 ml IM .ONCE ONE Stop: 04/07/18 06:01 Ephedrine Sulfate (Ephedrine Sulfate) 10 mg IV Q2M PRN PRN Reason: Hypotension Famotidine (Pepcid) 20 mg PO BID [facility] Last Admin: 04/06/18 11:10 Dose: 20 mg Documented by: Ferrous Sulfate (Feosol) 325 mg PO QDAY [facility] Last Admin: 04/06/18 11:10 Dose: 325 mg Documented by: Hydralazine HCl (Apresoline) 5 mg IV Q30MIN PRN PRN Reason: Hypertension Last Admin: 04/04/18 20:03 Dose: 5 mg Documented by: Lactated Ringer's (Lactated Ringers) 1,000 mls @ 125 mls/hr IV DIRECT JACOB Last Admin: 04/05/18 18:43 Dose: 125 mls/hr Documented by: Oxytocin/Sodium Chloride (Pitocin/Ns 20 Unit/1000ml Drip) 20 units in 1,000 mls @ 125 mls/hr IV DIRECT JACOB Last Admin: 04/04/18 23:54 Dose: 125 mls/hr Documented by: Oxytocin/Sodium Chloride (Pitocin/Ns 20 Unit/1000ml Drip) 20 units in 1,000 mls @ 0 mls/hr IV TITR JACOB Fentanyl/Bupivacaine/Sodium Chlor (Fentanyl-Bupiv 2 Mcg/Ml-0.125%) 200 mcg in 100 mls @ 8 mls/hr EPIDURAL TITRATE JACOB; Protocol Lactated Ringer's (Lactated Ringers) 1,000 mls @ 125 mls/hr IV DIRECT JACOB Magnesium Sulfate (Magnesium Sulfate 40gm/1000ml) 40 gm in 1,000 mls @ 25 mls/hr IV DIRECT JACOB Last Admin: 04/05/18 17:02 Dose: 1 gm/hr, 25 mls/hr Documented by: Oxytocin/Sodium Chloride (Pitocin/Ns 20 Unit/1000ml Drip) 20 units in 1,000 mls @ 250 mls/hr IV DIRECT JACOB Labetalol HCl (Normodyne) 200 mg PO BID [facility] Last Admin: 04/06/18 11:19 Dose: Not Given Documented by: Magnesium Hydroxide (Milk Of Magnesia) 30 ml PO QHS PRN PRN Reason: Constip Unrelieved By Senna Last Admin: 04/06/18 08:36 Dose: 30 ml Documented by: Mineral Oil (Mineral Oil) 30 ml PO QHS PRN PRN Reason: Constipation Multi-Ingredient Ointment (Lansinoh) 1 applic TP PRN PRN PRN Reason: dryness/cracking Naloxone HCl (Narcan 0.4 Mg/1 Ml) 0.2 mg IV Q2MIN PRN PRN Reason: Res Rate </= 8 or 02 SAT < 92% Ondansetron HCl (Zofran) 4 mg IV Q8H PRN PRN Reason: Nausea And Vomiting Last Admin: 04/04/18 08:33 Dose: 4 mg Documented by: Ondansetron HCl (Zofran) 4 mg IV Q8H PRN PRN Reason: Nausea And Vomiting Oxycodone/Acetaminophen (Percocet 5/325) 1 tab PO Q4H PRN PRN Reason: Pain, Moderate (4-6) Last Admin: 04/06/18 08:31 Dose: 1 tab Documented by: Promethazine HCl (Phenergan) 25 mg PO Q6H PRN PRN Reason: Nausea And Vomiting Promethazine HCl (Phenergan) 25 mg CA Q6H PRN PRN Reason: Nausea And Vomiting Sertraline HCl (Zoloft) 25 mg PO QDAY JACOB Last Admin: 04/06/18 11:22 Dose: 25 mg Documented by: Simethicone (Mylicon) 80 mg PO Q6H PRN PRN Reason: Gas pain Last Admin: 04/06/18 11:22 Dose: 80 mg Documented by: Yvonne Andino/Glycerin (Tucks Pad) 1 each TP PRN PRN PRN Reason: Hemorrhoids/cleansing/soothing Review of Systems All systems: negative (mild pain at the surgical site) Exam - Physical Exam Narrative exam: General appearance: Present: no acute distress, well-nourished - EENT Eyes: PERRL, EOM intact ENT: hearing intact, clear oral mucosa Ears: bilateral: normal - Neck Neck: supple, normal ROM - Respiratory Respiratory effort: normal Respiratory: bilateral: CTA - Cardiovascular Rhythm: regular Heart Sounds: Present: S1 & S2. Absent: gallop, rub Extremities: pulses intact, No edema, normal color, Full ROM - Gastrointestinal General gastrointestinal: Present: normal bowel sounds - Integumentary Integumentary: clear, warm, dry - Musculoskeletal Musculoskeletal: 1, strength equal bilaterally - Neurologic Neurologic: moves all extremities - Psychiatric Psychiatric: memory intact, appropriate mood/affect, intact judgment & insight - Constitutional Vitals: Temp Pulse Resp BP Pulse Ox 98.6 F 76 18 125/76 99 04/06/18 08:00 04/06/18 11:19 04/06/18 08:31 04/06/18 11:19 04/04/18 19:45 Results - Labs CBC & Chem 7: 04/09/18 12:11 04/09/18 12:11 Labs: Abnormal lab results 01/26/19 01/27/19 01/27/19 Range/Units 18:52 01:11 11:18 Hgb 7.6 L (10.1-14.3) gm/dl Hct 23.9 L (30.3-42.9) % Magnesium 4.70 H 3.20 H (1.7-2.3) mg/dL Assessment and Plan New onset Murmur - get 12 lead EKG, serial trop, 2d echo - will get LE doppler, d-dimer , CXR
[2018-04-06] MEDS: LANSINOH TP PRN (13:04)
--- NOTE | 2018-04-06 14:41 | XRay Report ---
FINAL REPORT EXAM: XR CHEST 1V AP HISTORY: sob TECHNIQUE: Frontal chest radiograph. PRIORS: None. FINDINGS: Cardiac silhouette appears mildly prominent in size. No evidence of pulmonary edema. No focal consolidation. No pleural effusion. No pneumothorax. No acute osseous abnormality. IMPRESSION: Possible mild cardiomegaly. No acute cardiopulmonary process.
[2018-04-06 16:54] LABS: BUN/Creatinine Ratio 5; Blood Urea Nitrogen 3 mg/dL (7-17); Calcium 7.6 mg/dL (8.4-10.2); Hemolysis Index 4
[2018-04-06] MEDS ORDERED: NACL 0.9% IV SCH (17:00)
[2018-04-07] MEDS ORDERED: BOOSTRIX IM ONE (06:00)
[2018-04-07] MEDS: FEOSOL PO SCH (09:37)
[2018-04-07] MEDS: PERCOCET 5/325 PO PRN ×3 (09:37→20:36)
[2018-04-07] MEDS: PEPCID PO SCH ×2 (09:37→21:49)
[2018-04-07] MEDS: ZOLOFT PO SCH (09:38)
--- NOTE | 2018-04-07 10:02 | Cat Scan Report ---
CTA CHEST INDICATION: Shortness of breath. COMPARISON: None similar. FINDINGS: Chest CTA performed following intravenous administration of 100 cc of Omnipaque 350. Rotational MIP's also obtained. Mild cardiomegaly. Minimal bibasilar pleural fluid and right more than left lower lobe atelectasis posteriorly noted. Slight mosaic attenuation bilaterally. No pericardial effusion. No aortic aneurysm or dissection. No suspicious pulmonary arterial filling defects. Patent central airway. No size significant adenopathy with few small left axillary lymph nodes measure up to approximately 1 cm. Normal imaged thyroid. Right hemidiaphragm approximately 3 cm higher than the left. Nonspecific distal esophageal wall prominence/thickening, not excluded for gastroesophageal reflux and/or hiatal hernia, amongst others. No acute abnormality in the imaged upper abdomen. Mild degenerative spurring at few spinal levels. CONCLUSION: No CT evidence of pulmonary embolism with few other findings as cardiomegaly, minimal bilateral pleural fluid, mildly elevated right hemidiaphragm and right more than left basilar atelectasis noted, as described. Please correlate. Thank you for the opportunity to participate in this patient's care.
--- NOTE | 2018-04-07 12:07 | Progress Note ---
Assessment and Plan - Patient Problems (1) S/P repeat low transverse Current Visit: Yes Status: Acute Plan to address problem: POD 3 - stable Continue routine postop orders Ambulation encouraged, as tolerated Abdominal binder ordered prn Anticipate discharge in 24 hours pending clearance from Internal Medicine (2) Chronic hypertension affecting Current Visit: Yes Status: Acute Plan to address problem: Asymptomatic Completed magnesium sulfate therapy Continue Labetalol 200mg PO BID (3) Anemia in puerperium, baby delivered during current episode of care Current Visit: Yes Status: Acute Plan to address problem: Asymptomatic Continue iron therapy Repeat H&H on 04/08/18 (4) Rh negative state in antepartum period Current Visit: Yes Status: Acute Plan to address problem: RhoGam given PP Subjective - Subjective Date of service: 04/07/18 Principal diagnosis: POD #3; s/p Repeat LTCS Interval history: 33yo G 3 P 2 1 0 3 s/p repeat LTCS on 04/05/18 of a viable male on 04/04/18. Heart murmur noted yesterday and internal medicine consult ordered. Patient has been seen by internal medicine. LE doppler still pending. Patient reports: appetite normal, voiding normally, pain well controlled, fl atus, ambulating normally, other (denies headache, visual disturbances or RUQ pain), no dizzy ambulation, no bowel movement [place]: doing well, in NICU Objective - Vital Signs Latest vital signs: Vital Signs Temp Pulse Resp BP BP 04/07/18 07:49 98.2 F 74 18 136/82 04/07/18 04:05 98.2 F 81 18 128/66 04/07/18 00:00 98.2 F 79 18 126/73 04/06/18 22:18 124/67 04/06/18 22:00 98.0 F 86 18 124/67 04/06/18 17:17 18 04/06/18 17:16 98.2 F 85 18 119/55 Intake and Output 04/06/18 04/07/18 04/07/18 23:59 07:59 15:59 Intake Total 320 600 120 Balance 320 600 120 Intake: Oral 320 600 120 Other: Total, Intake Amount 320 360 120 # Voids Void 1 1 1 - Exam Cardiovascular: Present: Regular rate Lungs: Present: Clear to auscultation Abdomen: Present: normal appearance Vulva: both: normal Uterus: Present: normal, firm, fundal height below umbilicus Extremities: Present: normal Incision: Present: normal, dry, intact (steri strips in place) - Labs Labs: Abnormal lab results 04/06/18 04/06/18 Range/Units 15:46 15:46 D-Dimer 2395.37 H (0-234) ng/mlDDU Sodium 135 L (137-145) mmol/L BUN 3 L (7-17) mg/dL Creatinine 0.6 L (0.7-1.2) mg/dL Calcium 7.6 L (8.4-10.2) mg/dL
--- NOTE | 2018-04-07 14:56 | Progress Note ---
Assessment and Plan New onset Murmur - likely its a flow murmur due to anemia following - normal 12 lead EKG, negative serial trop, 2d echo showed normal valve with preserved EF - normal CXR and negative for PE, NEGATIVE VENOUS DOPPLER FOR DVT Anemia, s/p one onit of PRBc transfusion, cont to monitor H/h Subjective Date of service: 04/07/18 Principal diagnosis: POD #3; s/p Repeat LTCS Interval history: Patient seen and examined No acute event o/n tolerating diet, no chest pain/SOB Objective - Constitutional Vitals: Vital Signs - 12hr 04/07/18 04/07/18 04:05 07:49 Temperature 98.2 F 98.2 F Pulse Rate 81 74 Respiratory 18 18 Rate Blood Pressure 128/66 136/82 [Right] General appearance: Present: no acute distress, well-nourished - EENT Eyes: PERRL, EOM intact ENT: hearing intact, clear oral mucosa Ears: bilateral: normal - Neck Neck: supple, normal ROM - Respiratory Respiratory effort: normal Respiratory: bilateral: CTA - Cardiovascular Rhythm: regular Heart Sounds: Present: S1 & S2. Absent: gallop, rub Extremities: pulses intact, No edema, normal color, Full ROM - Gastrointestinal General gastrointestinal: Present: normal bowel sounds - Integumentary Integumentary: clear, warm, dry - Musculoskeletal Musculoskeletal: 1, strength equal bilaterally - Neurologic Neurologic: moves all extremities - Psychiatric Psychiatric: memory intact, appropriate mood/affect, intact judgment & insight - Labs CBC & Chem 7: 04/09/18 12:11 04/09/18 12:11 Labs: Abnormal lab results 04/06/18 04/06/18 Range/Units 15:46 15:46 D-Dimer 2395.37 H (0-234) ng/mlDDU Sodium 135 L (137-145) mmol/L BUN 3 L (7-17) mg/dL Creatinine 0.6 L (0.7-1.2) mg/dL Calcium 7.6 L (8.4-10.2) mg/dL
--- NOTE | 2018-04-07 20:09 | Vascular Lab Report ---
FINAL REPORT EXAM: VL VENOUS DUPLEX LE BILAT HISTORY: Possible DVT TECHNIQUE: Real-time color duplex sonography was performed of the deep venous systems of the bilater al lower extremities and images are submitted for interpretation. PRIORS: None. FINDINGS: Right: There is normal compressibility of the common and superficial femoral veins and the popliteal vein. Normal venous waveforms are demonstrated throughout. No echogenic thrombus is demonstrated. Left: There is normal compressibility of the common and superficial femoral veins and the popliteal v ein. Normal venous waveforms are demonstrated throughout. No echogenic thrombus is demonstrated. IMPRESSION: No evidence of DVT.
[2018-04-07] MEDS: NORMODYNE PO SCH (21:49)
[2018-04-08] MEDS: PERCOCET 5/325 PO PRN ×4 (04:04→21:06)
[2018-04-08] MEDS: MILK OF MAGNESIA PO PRN ×2 (04:09→21:14)
[2018-04-08 04:39] LABS: Hematocrit 21.6 % (30.3-42.9); Hemoglobin 6.9 gm/dl (10.1-14.3)
[2018-04-08] MEDS: LANSINOH TP PRN (08:52)
[2018-04-08] MEDS: FEOSOL PO SCH (09:56)
[2018-04-08] MEDS: PEPCID PO SCH ×2 (09:57→21:07)
[2018-04-08] MEDS: NORMODYNE PO SCH ×2 (09:57→21:07)
[2018-04-08] MEDS: ZOLOFT PO SCH (09:57)
--- NOTE | 2018-04-08 11:17 | Progress Note ---
Addendum entered and electronically signed by BRADLEY MCKEON CNM 04/08/18 11:32: Pt reports Swollen "knots under her arms" Bilateral lymphedema noted. L side has larger lymph node. Size of golf ball. Will also notify of this finding. Original Note: Assessment and Plan A: POD#4 s/p Repeat c/s in NICU; Pt pumping her breast to breastfeed CHTN w/ super imposed preeclampsia; s/p MgS04; Labetalol 200mg BID Severe Anemia (6.9/21.6); "slightly dizzy with ambulation, fatigue" Heart Murmur: Internal Med Evaluation (12L EKG, Echo, and Chest XR WNL); Elevated D-Dimer 2395.35 Previous SOB; resolved 3+ bilateral lower extremity edema P: Continue Routine PP/PO orders Abdomnal binder Compression Stockings Continued co-management with Internal Med Consult Dr. Posada: management of hypertension; possible transfusion Subjective - Subjective Date of service: 04/08/18 Principal diagnosis: POD #4; CHTN w/ super imposed preeclampsia s/p Repeat LTCS; Severe Anemia Interval history: See H&P and previous notes Patient reports: appetite normal, voiding normally, pain well controlled, flatus, ambulating normally [place]: in NICU Objective - Vital Signs Latest vital signs: Vital Signs Temp Pulse Resp BP BP BP Pulse Ox 04/08/18 08:10 97.8 F 71 20 148/65 04/08/18 01:33 98.4 F 77 18 135/62 04/07/18 21:49 77 132/69 132/69 04/07/18 16:44 98.3 F 75 20 127/70 98 Intake and Output 04/07/18 04/08/18 04/08/18 23:59 07:59 15:59 Intake Total 240 360 320 Balance 240 360 320 Intake: Oral 240 320 Intake, Free Water 360 Other: Total, Intake Amount 240 320 # Voids Void 1 2 1 - Exam Breasts: Present: normal, (Pumping) Cardiovascular: Present: Regular rate, Normal S1, Normal S2, Other (Murmur noted. Previous Internal Med consult (12L EKG and Echo wnl, CXR Negative for PE). Previous SOB resolved) Lungs: Present: Clear to auscultation, Normal air movement Abdomen: Present: normal appearance, soft, tenderness (as expected post-op), normal bowel sounds. Absent: distention Vulva: both: normal Uterus: Present: firm, fundal height below umbilicus (-1) Extremities: Present: edema (3+ bilateral lower extremity Edema) Incision: Present: normal (LTI, slosed with SQ sutures and steri strips CDI, no drainage), dry, intact - Labs Labs: Abnormal lab results 04/08/18 Range/Units 04:11 Hgb 6.9 L (10.1-14.3) gm/dl Hct 21.6 L (30.3-42.9) %
[2018-04-08] MEDS ORDERED: NACL 0.9% 500 ML 500 ML IV NR (11:28)
--- NOTE | 2018-04-08 13:25 | Event Note ---
S: Today I resumed care of Ms Montalvo and was notified of her a) anemia Hgb 6.9 b) blateral lower extremity edema and c) bilateral axillary masses. Ms. Montalvo has agreed to a blood transfusion - transfusion is currently pending. She states she feels "tired". She denies headaches or dizziness. She denies any calf tenderness or unilateral swelling of her legs. Her bilateral venous doppler was negative for DVT. She states she has noted masses in her armpit for 1 week. She states the masses are worrisome. O: Afebrile. VSS Gen: NAD, AO x 3, lying up in bed Breast: engorged, no palpable masses bilaterally left axilla ~3cm mobile nodule right axilla multple small nodules Abd: soft, incision clean/dry/intact Ext: no cyanosis, no pitting edema, wearing WYATT hose Absent homans A POD#3 Severe anemia secondary to anemia of and anemia of acute blood loss Bilateral leg swelling s/p IV hydration, preeclampsia third spacing CHTN S/I preeclampsia P 1. Per internal medicine plan packed red blood cell transfusion ordered, abdominal CT ordered. H/H post-transfusion 2. Recommend walking to mobilize fluid in lower extremities. Continue WYATT hose. 3. Order bilateral axillary breast US. Reassured patient mammary tissue may extend to axilla. If mammogram recommended will order outpatient.
--- NOTE | 2018-04-08 14:45 | Cat Scan Report ---
CT ABDOMEN PELVIS WITHOUT CONTRAST: HISTORY: Anemia. COMPARISON: none. TECHNIQUE: Helical CT in 1.25mm intervals without IV contrast. Sagittal and coronal reconstructions. FINDINGS: Lung bases: Trace right pleural effusion. Liver: Normal. Biliary system: Normal. Pancreas: Normal. Spleen: Normal. Kidneys/ureters/bladder: Normal. Adrenal glands: Normal. Aorta: Normal. Intestines: Within normal limits given no oral contrast was administered. Appendix: Not confidently identified. Pelvic viscera: uterus is enlarged measuring 18 x 9 x 14 cm. There is a focal area of hemorrhage containing trace gas within the endometrial canal or lower anterior uterine wall measuring up to 6 x 4 x 5 cm. The adnexa are unremarkable. Ascites: There is a small amount of dense fluid in the cul-de-sac which could represent a small amount of blood products. Adenopathy: None. Musculoskeletal: Intact. IMPRESSION: Enlarged uterus with evidence of hemorrhage in the endometrial canal or lower anterior uterine wall. This may be related to recent , correlate with the patient. Small dense fluid in the cul-de-sac which probably represents small hemoperitoneum.
[2018-04-08] MEDS: TYLENOL PO PRN (15:36)
--- NOTE | 2018-04-08 15:54 | Progress Note ---
Assessment and Plan New onset Murmur - likely its a flow murmur due to anemia following - normal 12 lead EKG, negative serial trop, 2d echo showed normal valve with preserved EF - normal CXR and negative for PE, NEGATIVE VENOUS DOPPLER FOR DVT Anemia, s/p one onit of PRBc transfusion, cont to monitor H/h - Hb further dropped today, will order CT abdomen/pelvis and transfuse additional unit of PRBC b/l axillary mass ?, breast US ordered by primary s/p , post-op care by primary Subjective Date of service: 04/08/18 Principal diagnosis: POD #3; s/p Repeat LTCS Interval history: Patient seen and examined No acute event o/n tolerating diet, no chest pain/SOB c/o b/l axillary nodule Objective - Exam Narrative Exam: General appearance: Present: no acute distress, well-nourished - EENT Eyes: PERRL, EOM intact ENT: hearing intact, clear oral mucosa Ears: bilateral: normal - Neck Neck: supple, normal ROM - Respiratory Respiratory effort: normal Respiratory: bilateral: CTA - Cardiovascular Rhythm: regular Heart Sounds: Present: S1 & S2. Absent: gallop, rub Extremities: pulses intact, No edema, normal color, Full ROM - Gastrointestinal General gastrointestinal: Present: normal bowel sounds - Integumentary Integumentary: clear, warm, dry - Musculoskeletal Musculoskeletal: 1, strength equal bilaterally - Neurologic Neurologic: moves all extremities - Psychiatric Psychiatric: memory intact, appropriate mood/affect, intact judgment & insight - Constitutional Vitals: Vital Signs - 12hr 04/08/18 08:10 Temperature 97.8 F Pulse Rate 71 Respiratory 20 Rate Blood Pressure 148/65 [Right] - Labs CBC & Chem 7: 04/09/18 12:11 04/09/18 12:11 Labs: Abnormal lab results 04/08/18 04/08/18 Range/Units 04:11 13:27 Hgb 6.9 L (10.1-14.3) gm/dl Hct 21.6 L (30.3-42.9) % Crossmatch See Detail
--- NOTE | 2018-04-08 18:49 | Event Note ---
Abdominal CT images and report reviewed - pelvis consistent with expected post- section changes.
[2018-04-09] MEDS: PERCOCET 5/325 PO PRN ×2 (05:47→11:02)
[2018-04-09 06:34] LABS: Hematocrit 23.5 % (30.3-42.9); Hemoglobin 7.6 gm/dl (10.1-14.3)
[2018-04-09] MEDS: FEOSOL PO SCH (11:00)
[2018-04-09] MEDS: NORMODYNE PO SCH (11:00)
[2018-04-09] MEDS: PEPCID PO SCH (11:00)
[2018-04-09] MEDS: ZOLOFT PO SCH (11:00)
[2018-04-09] MEDS ORDERED: NORVASC PO SCH (12:00)
--- NOTE | 2018-04-09 12:04 | Progress Note ---
Assessment and Plan - Patient Problems (1) 36 weeks gestation of Current Visit: Yes Status: Acute (2) Chronic hypertension affecting Current Visit: Yes Status: Acute Plan to address problem: Continue labetolol. Add norvasc 5 mg PO QD. Toxemia labs today. If normal, will discharge patient home on labetolol and norvasc. (3) Previous section Current Visit: Yes Status: Acute (4) Obesity Current Visit: Yes Status: Acute Qualifiers: Obesity type: due to excess calories (5) Rh negative state in antepartum period Current Visit: Yes Status: Acute Plan to address problem: Rhogam given after delivery. Subjective - Subjective Date of service: 04/09/18 Principal diagnosis: POD #3; s/p Repeat LTCS Interval history: Patient is a 33 year old who is S/P repeat C/section, POD#6. She developed SOB and chest pain on POD#4 and her Hb dropped to 6. She had PE workup which was negative. Abdominal CT was done to rule out intraperitoneal bleeding. It showed normal postop changes. She recieved 1 unit of PRBC yesterday and her H/H went up to 7.6/23.5. This AM, she denies any dizziness, SOB or palpitation. Her vitals are stable except for her BP which has been labile. She is on labetolol 200 mg BID. She has been tolerating regular diet well. Objective - Vital Signs Latest vital signs: Vital Signs Temp Pulse Resp BP BP Pulse Ox 04/09/18 11:00 159/84 04/09/18 05:40 70 161/74 97 04/09/18 01:02 98.2 F 74 20 160/96 100 04/08/18 21:13 97.8 F 70 20 147/90 97 04/08/18 21:07 68 147/90 04/08/18 19:30 98.3 F 68 20 141/75 141/75 04/08/18 18:57 98.4 F 74 18 129/82 100 04/08/18 18:23 97.6 F 72 18 145/63 99 04/08/18 17:18 98.4 F 61 20 147/81 100 Intake and Output 04/08/18 04/09/18 04/09/18 23:59 07:59 15:59 Intake Total 240 240 Balance 240 240 Intake: Oral 240 240 Blood Product 0 Leukoreduced Rbc Part 2 0 Unit [id number] Other: Total, Intake Amount 240 240 # Voids Void 1 - Exam Cardiovascular: Present: Normal S1, Normal S2 Lungs: Present: Clear to auscultation Vulva: both: normal Deep Tendon Reflex Grade: Normal +2 - Labs Labs: Abnormal lab results 04/08/18 04/09/18 Range/Units 13:27 06:01 Hgb 7.6 L (10.1-14.3) gm/dl Hct 23.5 L (30.3-42.9) % Crossmatch See Detail
--- NOTE | 2018-04-09 12:07 | Discharge Summary ---
Providers - Providers Date of Admission: 04/03/18 10:05 Date of discharge: 04/09/18 Attending physician: MAURICIO GLEZ MD 04/06/18 10:32 Consult to Physician [CONS] Urgent Comment: Consulting Provider: TESHA LUGO Physician Instructions: Reason For Exam: Heart murmur (new); chronic HTN; preE Primary care physician: MAURICIO GLEZ MD Hospitalization Reason for admission: section Delivery: Procedure: repeat low transverse Other procedures: none complications: other (superinposed pre-eclampsia, anemia, blood transfusion.) Discharge diagnosis: IUP at term delivered, other (CHTN, anemia) Condition at discharge: Stable Disposition: RI-01 TO HOME OR SELFCARE - Discharge Diagnoses (1) 36 weeks gestation of Status: Acute (2) Chronic hypertension affecting Status: Acute (3) Previous section Status: Acute (4) Obesity Status: Acute Qualifiers: Obesity type: due to excess calories (5) Rh negative state in antepartum period Status: Acute Plan - Discharge Medications Prescriptions: Ferrous Sulfate [Feosol 325 MG tab] 325 mg PO BID 30 Days #60 tablet oxyCODONE /ACETAMINOPHEN [Percocet 5/325] 1 tab PO Q4HR PRN 14 Days #30 tab PRN Reason: Pain , Severe (7-10) - Provider Discharge Summary Additional instructions: [] Smoking cessation referral if applicable(refer to patient education folder for contact #) [] Refer to [facility] Booklet Call your doctor immediately for: * Fever > 100.5 * Heavy vaginal bleeding ( >1 pad per hour) * Severe persistent headache * Shortness of breath * Reddened, hot, painful area to leg or breast * Drainage or odor from incision. * Keep incision clean and dry at all times and follow doctor's instructions regarding bathing/showering - Follow up plan Follow up: MAURICIO GLEZ MD [Primary Care Provider] - 7 Days
[2018-04-09 12:27] LABS: Hematocrit 23.9 % (30.3-42.9); Hemoglobin 7.6 gm/dl (10.1-14.3); Mean Corpuscular HGB Conc 32 % (30-34); Platelet Count 277 K/mm3 (140-440); Red Blood Count 3.65 M/mm3 (3.65-5.03)
[2018-04-09 12:33] LABS: Mean Corpuscular Volume 66 fl (79-97)
[2018-04-09 12:47] LABS: Alanine Aminotransferase 24 units/L (7-56); Uric Acid 5.2 mg/dL (3.5-7.6)
--- NOTE | 2018-04-09 12:54 | Progress Note ---
Assessment and Plan New onset Murmur - likely its a flow murmur due to anemia following - normal 12 lead EKG, negative serial trop, 2d echo showed normal valve with preserved EF - normal CXR and negative for PE, NEGATIVE VENOUS DOPPLER FOR DVT Anemia, s/p two onit of PRBc transfusion, cont to monitor H/h - Ordered CT abdomen/pelvis with expected post changes b/l axillary mass/nodules ?, breast US ordered by primary - further f/u outpt with primary s/p , post-op care by primary Subjective Date of service: 04/09/18 Principal diagnosis: POD #3; s/p Repeat LTCS Interval history: Patient seen and examined No acute event o/n tolerating diet, no chest pain/SOB Objective - Exam Narrative Exam: General appearance: Present: no acute distress, well-nourished - EENT Eyes: PERRL, EOM intact ENT: hearing intact, clear oral mucosa Ears: bilateral: normal - Neck Neck: supple, normal ROM - Respiratory Respiratory effort: normal Respiratory: bilateral: CTA - Cardiovascular Rhythm: regular Heart Sounds: Present: S1 & S2. Absent: gallop, rub Extremities: pulses intact, No edema, normal color, Full ROM - Gastrointestinal General gastrointestinal: Present: normal bowel sounds - Integumentary Integumentary: clear, warm, dry - Musculoskeletal Musculoskeletal: 1, strength equal bilaterally - Neurologic Neurologic: moves all extremities - Psychiatric Psychiatric: memory intact, appropriate mood/affect, intact judgment & insight - Constitutional Vitals: Vital Signs - 12hr 04/09/18 04/09/18 04/09/18 01:02 05:40 11:00 Temperature 98.2 F Pulse Rate 74 70 Respiratory 20 Rate Blood Pressure 160/96 161/74 159/84 Blood Pressure [Right] O2 Sat by Pulse 100 97 Oximetry 04/09/18 04/09/18 11:50 12:10 Temperature 97.6 F Pulse Rate 68 Respiratory Rate Blood Pressure 164/71 Blood Pressure 164/71 [Right] O2 Sat by Pulse Oximetry - Labs CBC & Chem 7: 04/09/18 12:11 04/09/18 12:11 Labs: Abnormal lab results 04/08/18 04/09/18 04/09/18 Range/Units 13:27 06:01 12:11 Hgb 7.6 L 7.6 L (10.1-14.3) gm/dl Hct 23.5 L 23.9 L (30.3-42.9) % MCV 66 L (79-97) fl MCH 21 L (28-32) pg RDW 16.0 H (13.2-15.2) % Creatinine (0.7-1.2) mg/dL Crossmatch See Detail 04/09/18 Range/Units 12:11 Hgb (10.1-14.3) gm/dl Hct (30.3-42.9) % MCV (79-97) fl MCH (28-32) pg RDW (13.2-15.2) % Creatinine 0.6 L (0.7-1.2) mg/dL Crossmatch
[2018-04-09 13:15] VITALS: BP 140/76
--- NOTE | 2018-04-10 08:24 | Ultrasound Report ---
Bilateral axillary sonogram: History: Bilateral axillary masses . Findings: There is noted hypoechoic masses with central areas of echogenicity at right and the left axilla. No abnormal color flow is identified. The wall appears smooth. The largest measures 2.9 cm at left axilla and appears superficial. Impression: Probable bilateral normal and enlarged lymph nodes , inflammatory or granulomatous nodules among others. If clinically indicated biopsy of the largest nodule may be performed.
== END 2018-04-09 14:50 | disposition home or self-care (01) | DRG 787 ==
LOC: TRG 15:32 → LD 23:22 → OBSVTOIN 04-03 10:05 → LD 04-05 04:10 → OB 04-05 22:06
PROVIDERS: ADMIT Obstetrics & Gynecology; ATTEND Obstetrics & Gynecology
PROC: 10D00Z1 Extraction of Products of Conception, Low, Open Approach (ICD-10-PCS; principal; 2018-04-03)
PROC: 3E0334Z Introduction of Serum, Toxoid and Vaccine into Peripheral Vein, Percutaneous Approach (ICD-10-PCS; 2018-04-05)
PROC: 3E0234Z Introduction of Serum, Toxoid and Vaccine into Muscle, Percutaneous Approach (ICD-10-PCS; 2018-04-07)
PROC: 30233N1 Transfusion of Nonautologous Red Blood Cells into Peripheral Vein, Percutaneous Approach (ICD-10-PCS; 2018-04-08)
DX: O11.4 Pre-existing hypertension with pre-eclampsia, complicating childbirth (principal); D62 Acute posthemorrhagic anemia; O34.211 Maternal care for low transverse scar from previous cesarean delivery; Z3A.36 36 weeks gestation of pregnancy; Z37.0 Single live birth; R01.1 Cardiac murmur, unspecified; J45.909 Unspecified asthma, uncomplicated; F32.9 Major depressive disorder, single episode, unspecified; F41.9 Anxiety disorder, unspecified; F17.210 Nicotine dependence, cigarettes, uncomplicated; E66.09 Other obesity due to excess calories; O75.4 Other complications of obstetric surgery and procedures; O99.52 Diseases of the respiratory system complicating childbirth; O99.334 Smoking (tobacco) complicating childbirth; O99.344 Other mental disorders complicating childbirth; O99.214 Obesity complicating childbirth; O99.43 Diseases of the circulatory system complicating the puerperium; O26.893 Other specified pregnancy related conditions, third trimester; O99.02 Anemia complicating childbirth; D63.8 Anemia in other chronic diseases classified elsewhere; Z71.6 Tobacco abuse counseling; Z23 Encounter for immunization; Z67.41 Type O blood, Rh negative
CPT/HCPCS: 36415; 71045; 71275; 74176; 76816; 76819; 76820; 80048; 81001; 82565; 83615; 83735; 84156; 84450; 84460; 84484; 84550; 85014; 85018; 85027; 85379; 85461; 86850; 86870; 86900; 86901; 86920; 88307; 93005; 93010; 93306; 93970; 99406; G0378; A6250; C1765; J0360; J0690; J1100; J1170; J2405; J2590; J2765; J2790; J3475; J7040; J7120; P9016; Q9967